=== PATIENT | female | born 1975 ===

== ENCOUNTER 2021-03-09 10:01 | Emergency (ER) | payer OTHER ==
[~2021-03-09] VITALS: Ht 157.5 cm; Wt 68.0 kg
[2021-03-09] MEDS ORDERED: Amoxicillin875 MG PO (14:37)
== END 2021-03-09 14:42 | disposition home or self-care (01) ==
LOC: ER 10:01
DX: H66.91 Otitis media, unspecified, right ear (principal); R09.81 Nasal congestion
CPT/HCPCS: 71046; 90471; 96365; 96375; 99284-25

== ENCOUNTER → 2021-10-29 | Emergency (ER) | payer OTHER ==
[~2021-10-29] VITALS: Ht 160 cm; Wt 81.7 kg
[~2021-10-29] MED LIST: AMOCLA875 PO; Amoxicillin875 MG PO; LISINOPRIL2.5 MG PO
== END ==
LOC: ER 09:13
DX: J32.9 Chronic sinusitis, unspecified (principal); I10 Essential (primary) hypertension; Z79.899 Other long term (current) drug therapy
CPT/HCPCS: 71045; 99283-25